=== PATIENT | female | born 1940 | race African-American/Black ===

== ENCOUNTER 2019-07-12 12:25 | Inpatient (IN) ==
[2019-07-12] MEDS ORDERED: ONDANSETRON 4 MG/2 ML VIAL IV STA (13:36)
[2019-07-12 14:02] LABS: Basophils % 0.4 % (0.0-0.8); Eosinophils # 0.1 10*3/uL (0.0-0.87); Eosinophils % 1.3 % (0.00-10.9); Hematocrit 43.6 VOL% (35.7-47.0); Hemoglobin 14.2 GM/DL (12.0-16.0); Immature Granulocytes % 0.2 %; Immature Granulocytes Absolute 0.02 #; Lymphocytes # 3.1 10*3/uL (1.4-4.0); Lymphocytes % 31.5 % (21.3-54.2); Mean Corpuscular HGB Conc 32.6 GM/DL (32-36); Mean Platelet Volume 10.6 FL (9.6-12.0); Monocytes % 11.4 % (1.7-12.7); Neutrophils % 55.2 % (38.7-73.9); Platelet Count 246 T/CUMM (130-400); Red Blood Count 5.07 MC/CUMM (3.8-5.5); Red Cell Distribution Width 13.3 % (9.3-17.3); White Blood Count 9.8 T/CUMM (4-12)
[2019-07-12 14:22] LABS: Albumin 3.9 G/DL (3.4-5.0); Bilirubin,Total 0.8 MG/DL (0.2-1.0); Calcium 10.4 MG/DL (8.5-10.1); Osmolality,Calculated 279.3 MOS/KG (273-304); Total Protein 7.7 G/DL (6.4-8.3)
[2019-07-12 14:43] LABS: Apearance,Urine CLEAR (Clear); Bilirubin,Urine Negative (Negative); Blood, Urine Negative (Negative); Glucose,Urine (UA) Negative (Negative); Ketones,Urine Negative (Negative); Nitrite,Urine Negative (Negative); Protein,Urine Negative; RBC,Urine 1 /HPF (0-4); Squamous Epithelial Cell,Urine Occasional /HPF (0-10); Urine Color Straw (Yellow); Urine Specific Gravity 1.018 (1.001-1.035); Urine Urobilinogen < 2.0 EU/DL (0.2-1.0); WBC,Urine <1 /HPF (0-6)
[2019-07-12] MEDS ORDERED: ACETAMINOPHEN 325 MG TABLET PO PRN (15:16)
[2019-07-12] MEDS ORDERED: POTASSIUM CHLORIDE RIDER 20 MEQ in PREMIX 1 EACH IV STA (15:49)
[2019-07-12] MEDS ORDERED: GLUCAGON 1 MG VIAL IM PRN (15:58)
[2019-07-12] MEDS ORDERED: DEXTROSE 10% 25 GM/250 ML BAG IV PRN (15:58)
[2019-07-12] MEDS: ENOXAPARIN 40 MG/0.4 ML SYRINGE SUBCUT SCH (16:04)
[2019-07-12] MEDS: INSULIN REGULAR 100 UNIT/ML SUBCUT SCH ×2 (19:13→21:31)
[2019-07-12] MEDS: SODIUM CHLORIDE 0.45% 1,000 ML IV SCH (19:39)
[2019-07-12] MEDS: MORPHINE 4 MG/1 ML VIAL IV PRN (20:00)
[2019-07-12] MEDS: ONDANSETRON 4 MG/2 ML VIAL IV PRN (20:01)
[2019-07-12] MEDS: LISINOPRIL/HCTZ 20-25 MG TABLET PO SCH (20:01)
[2019-07-12] MEDS: SIMVASTATIN 40 MG TABLET PO SCH (21:33)
[2019-07-13] MEDS: SODIUM CHLORIDE 0.45% 1,000 ML IV SCH ×4 (03:28→22:03)
[2019-07-13] MEDS: MORPHINE 4 MG/1 ML VIAL IV PRN ×2 (03:29→08:12)
[2019-07-13 05:12] LABS: Albumin 2.9 G/DL (3.4-5.0); Bilirubin,Total 0.9 MG/DL (0.2-1.0); Calcium 8.9 MG/DL (8.5-10.1); Osmolality,Calculated 278.4 MOS/KG (273-304); Total Protein 6.2 G/DL (6.4-8.3)
[2019-07-13 05:14] LABS: Basophils % 0.3 % (0.0-0.8); Eosinophils # 0.1 10*3/uL (0.0-0.87); Eosinophils % 1.6 % (0.00-10.9); Hematocrit 38.4 VOL% (35.7-47.0); Hemoglobin 12.2 GM/DL (12.0-16.0); Immature Granulocytes % 0.4 %; Immature Granulocytes Absolute 0.03 #; Lymphocytes % 29.1 % (21.3-54.2); Mean Corpuscular HGB Conc 31.8 GM/DL (32-36); Mean Corpuscular Volume 86.7 FL (87-102); Mean Platelet Volume 11.5 FL (9.6-12.0); Monocytes % 14.6 % (1.7-12.7); Platelet Count 199 T/CUMM (130-400); Red Blood Count 4.43 MC/CUMM (3.8-5.5); Red Cell Distribution Width 13.2 % (9.3-17.3); White Blood Count 6.9 T/CUMM (4-12)
[2019-07-13] MEDS: INSULIN REGULAR 100 UNIT/ML SUBCUT SCH ×4 (07:42→22:05)
[2019-07-13] MEDS: LISINOPRIL/HCTZ 20-25 MG TABLET PO SCH (09:09)
[2019-07-13] MEDS: BISACODYL 5 MG TABLET PO SCH ×2 (11:57→22:05)
[2019-07-13] MEDS: ONDANSETRON 4 MG/2 ML VIAL IV PRN (12:50)
[2019-07-13] MEDS: ENOXAPARIN 40 MG/0.4 ML SYRINGE SUBCUT SCH (16:01)
[2019-07-13] MEDS: SIMVASTATIN 40 MG TABLET PO SCH (22:03)
[2019-07-14] MEDS: SODIUM CHLORIDE 0.45% 1,000 ML IV SCH (08:22)
[2019-07-14] MEDS: INSULIN REGULAR 100 UNIT/ML SUBCUT SCH ×2 (08:32→11:30)
[2019-07-14] MEDS: BISACODYL 5 MG TABLET PO SCH (08:33)
[2019-07-14] MEDS ORDERED: LISINOPRIL 20 MG TABLET PO SCH (09:00)
[2019-07-14 12:18] VITALS: BP 145/65
== END 2019-07-14 14:58 | disposition home or self-care (01) | DRG 440 ==
LOC: N.EDINP 12:25 → N.ED 12:25 → N.2W 17:04
PROVIDERS: ADMIT Internal Medicine; ATTEND Internal Medicine